=== PATIENT | male | born 1955 | race Two or more races ===

== ENCOUNTER 2019-11-02 13:24 | Outpatient (CLI) | payer BC | END 2019-11-02 23:59 | disposition home or self-care (01) | LOC: MSC 13:24 | PROVIDERS: ATTEND Internal Medicine | DX: M67.431 Ganglion, right wrist (principal); G40.909 Epilepsy, unspecified, not intractable, without status epilepticus; E78.5 Hyperlipidemia, unspecified; G47.33 Obstructive sleep apnea (adult) (pediatric); Z79.899 Other long term (current) drug therapy ==